=== PATIENT | female | born 1980 | race Caucasian/White ===

== ENCOUNTER 2020-02-01 09:58 | Outpatient (REF) | payer MEDICAID, SELFPAY ==
--- NOTE | 2020-02-01 09:00 | PAPFT_PTH ---
PATIENT: ALLEN PHILIP LOC: LOCATED WITHIN [facility]#:[id number] AGE/SX: 39/F ROOM: RE02/01/[address]: Khushboo Wesley : 1980 BED: DIS: 02/01/2020 SPEC #: [id number] RECD: 02/01/20 12:40 STATUS: WYATT DENG #: [id number] NASREEN: 02/01/20 09:[address]: Khushboo Wesley DEPT: [facility] Cytology RECD BY: Lexi Carias ENTERED: 02/01/20 12:40 SP TYPE: PAPFT OTHR DR: Divina Hendricks Tissues: 1 - CX/ENDOCX FOR PAP SMEARS Procedures: PAP THIN PREP/[facility] Screening HPV DNA PROBE Comments: [id number]
[2020-02-01 19:06] LABS: ALT 32 U/L (14-59); AST 19 U/L (15-37); Albumin 4.2 g/dL (3.4-5.0); Alkaline Phosphatase 42 U/L (46-116); Anion Gap 6.8 mmol/L (3-11); BUN 13 mg/dL (7-18); Bilirubin, Total 0.4 mg/dL (0.2-1.0); CO2 31.2 mmol/L (21.0-32.0); CREATININE 0.93 mg/dL (0.55-1.02); Calcium 9.4 mg/dL (8.5-10.1); Chloride 104 mmol/L (98-107); Glucose 95 mg/dL (74-106); Potassium 4.1 mmol/L (3.5-5.1); Sodium 142 mmol/L (136-145); TSH (W/Ref FT4) 1.51 uIU/mL (0.36-3.74); Total Protein 7.3 g/dL (6.4-8.2)
[2020-02-01 19:20] LABS: Vitamin D 25 Total 36.2 ng/ml (30-100)
== END 2020-02-01 10:18 ==
LOC: NCHCN 09:58
PROVIDERS: PCP Nurse Practitioner; Visit Provider Nurse Practitioner
DX: Z12.4 Encounter for screening for malignant neoplasm of cervix (principal); Z11.51 Encounter for screening for human papillomavirus (HPV); R41.3 Other amnesia; Z00.00 Encounter for general adult medical examination without abnormal findings
CPT/HCPCS: 80053; 82306; 88142; 84443; 87624

== ENCOUNTER 2020-08-20 02:12 | Outpatient (CLI) | payer MEDICAID, SELFPAY ==
[2020-08-20 10:57] LABS: FREE T4 1.08 ng/dL (0.76-1.46)
[2020-08-20 11:39] LABS: Vitamin B12 584 pg/mL (193-986)
[2020-08-20 17:24] LABS: T3,Free 3.9 pg/mL (2.8-5.3)
== END 2020-08-20 02:32 ==
PROVIDERS: PCP Nurse Practitioner; Visit Provider Naturopath
DX: R53.83 Other fatigue (principal)
CPT/HCPCS: 36415; 82607; 84439; 84481